=== PATIENT | female | born 1990 | race Caucasian/White ===

== ENCOUNTER 2023-04-05 09:46 | Outpatient (CLI) | payer OTHER ==
[2023-04-05 20:22] LABS: BASOPHILS # (AUTO) 0.1 10^3/uL (0.0-0.1); EOSINOPHILS # (AUTO) 0.1 10^3/uL (0.0-0.7); EOSINOPHILS % (AUTO) 1.4 %; HCT - HEMATOCRIT 44.6 % (37.0-47.0); LYMPHOCYTES # (AUTO) 3.2 10^3/uL (1.5-3.5); LYMPHOCYTES % (AUTO) 36.4 %; MEAN CORPUSCULAR HEMOGLOBIN 27.5 pg (27.0-31.0); MEAN CORPUSCULAR HGB CONC 31.4 g/dL (32.0-36.0); MEAN CORPUSCULAR VOLUME 87.5 fL (81.0-99.0); MEAN PLATELET VOLUME 11.3 fL (7.9-10.8); MONOCYTES # (AUTO) 0.6 10^3/uL (0.0-1.0); MONOCYTES % (AUTO) 7.2 %; NEUTROPHILS # (AUTO) 4.7 10^3/uL (1.5-6.6); NEUTROPHILS % (AUTO) 53.7 %; PLT - PLATELET COUNT 263 10^3/uL (130-450); RED CELL DISTRIBUTION WIDTH 13.7 % (12.0-15.0); WHITE BLOOD COUNT 8.8 x10^3/uL (4.8-10.8)
[2023-04-05 20:57] LABS: % IRON SATURATION 25 % (20-50); ALBUMIN 4.7 g/dL (3.2-5.5); ALBUMIN/GLOBULIN RATIO 1.5 (1.0-2.2); ALKALINE PHOSPHATASE 93 IU/L (42-121); ALT ALANINE AMINOTRANSFERASE 48 IU/L (10-60); AST ASPARTATE AMINOTRANSFERASE 27 IU/L (10-42); BILIRUBIN,TOTAL 0.8 mg/dL (0.2-1.0); BUN - BLOOD UREA NITROGEN 13 mg/dL (6-20); CALCIUM 9.5 mg/dL (8.5-10.3); CARBON DIOXIDE - CO2 24 mmol/L (21-32); CHLORIDE 107 mmol/L (101-111); CHOL/HDL RATIO 6.5 (<4.4); CHOLESTEROL 226 mg/dL; CREATININE 0.6 mg/dL (0.4-1.0); ESTIMATED AVERAGE GLUCOSE 108 mg/dL (70-100); GFR - MDRD 117 (>89); GLUCOSE 98 mg/dL (70-100); HDL CHOLESTEROL 35 mg/dL; HEMOGLOBIN A1c% 5.4 % (4.27-6.07); IRON 87 ug/dL (28-170); LDL CHOLESTEROL,CALCULATED 139 mg/dL; SODIUM 138 mmol/L (135-145); TOTAL IRON BINDING CAPACITY 350 ug/dL (250-450); TOTAL PROTEIN 7.9 g/dL (6.7-8.2); TRANSFERRIN 250 mg/dL (192-382); TRIGLYCERIDES 259 mg/dL; VLDL CHOLESTEROL 52 mg/dL
[2023-04-05 21:05] LABS: THYROID STIMULATING HORMONE 1.92 uIU/mL (0.34-5.60)
[2023-04-05 21:06] LABS: FREE T3 3.81 pg/mL (2.5-3.9); FREE T4 (FREE THYROXINE) 0.81 ng/dL (0.58-1.64)
== END 2023-04-05 09:47 | disposition home or self-care (01) ==
LOC: LAB.N 09:46
PROVIDERS: ATTEND Physician Assistant
DX: E78.5 Hyperlipidemia, unspecified (principal); R25.1 Tremor, unspecified; R73.01 Impaired fasting glucose; E04.9 Nontoxic goiter, unspecified
CPT/HCPCS: 36415; 80053; 80061; 82390; 83036; 83540; 83721; 84439; 84443; 84466; 84481; 85025

== ENCOUNTER 2023-04-30 07:38 | Outpatient (CLI) | payer OTHER ==
--- NOTE | 2023-05-01 13:00 | Ultrasound Report ---
PROCEDURE: Head or Neck Soft Tissue INDICATIONS: GOITER TECHNIQUE: Real-time scanning was performed of the thyroid gland, with image documentation. COMPARISON: None FINDINGS: Right: Thyroid lobe measures 4.8 x 1.3 x 1.4 cm, and is homogeneous in echotexture. Left: Thyroid lobe measures 4.6 x 1.3 x 1.9 cm, and is homogenous in echotexture. Isthmus: 0.3 mm thick. Nodule number: 1 Location: Right superior Size: 0.6 x 0.2 x 0.6 cm. Composition: Cystic. Echogenicity: Anechoic. Shape: wider than tall. Margins: Smooth (0 points). Echogenic foci: None (0 points). Total points: 0 ACR TI-RADS category: 1. Nodule number: 2 Location: Location Size: 0.8 x 0.7 x 0.8 cm. Composition: Solid. Echogenicity: Hyperechoic. Shape: wider than tall. Margins: Smooth (0 points). Echogenic foci: None (0 points). Total points: 3 ACR TI-RADS category: 3. IMPRESSION: 1. Small thyroid nodules bilaterally. Thyroid nodule 2 is mildly suspicious. Please see enclosed foll ow-up recommendation. ACR TI-RADS definitions and recommendations: TI-RADS 1 (benign): 0 points. FNA not needed. TI-RADS 2 (not suspicious): 2 points. FNA not needed. TI-RADS 3 (mildly suspicious): 3 points. "FNA if 2.5 cm or larger, follow up if 1.5 cm or larger (at 1, 3, and 5 years). TI-RADS 4 (moderately suspicious): 4-6 points. "FNA if 1.5 cm or larger, follow up if 1 cm or larger (at 1, 2, 3, and 5 years). TI-RADS 5 (highly suspicious): 7 points or more. "FNA if 1 cm or larger, follow up if 0.5 cm or larger (every year for 5 years). Reviewed by: Blake Storm MD on 05/01/2023 12:58 PM PDT Approved by: Blake Storm MD on 05/01/2023 12:58 PM PDT Station ID: [id number]
== END 2023-04-30 07:39 | disposition home or self-care (01) ==
LOC: DI 07:38
PROVIDERS: ATTEND Physician Assistant
DX: E04.2 Nontoxic multinodular goiter (principal)

== ENCOUNTER 2023-09-23 08:10 | Outpatient (CLI) | payer OTHER ==
[2023-09-23 12:28] LABS: BASOPHILS # (AUTO) 0.1 10^3/uL (0.0-0.1); BASOPHILS % (AUTO) 0.6 %; EOSINOPHILS # (AUTO) 0.1 10^3/uL (0.0-0.7); HCT - HEMATOCRIT 42.1 % (37.0-47.0); HGB - HEMOGLOBIN 13.1 g/dL (12.0-16.0); LYMPHOCYTES # (AUTO) 2.8 10^3/uL (1.5-3.5); LYMPHOCYTES % (AUTO) 36.1 %; MEAN CORPUSCULAR HEMOGLOBIN 27.7 pg (27.0-31.0); MEAN CORPUSCULAR HGB CONC 31.1 g/dL (32.0-36.0); MEAN PLATELET VOLUME 10.8 fL (7.9-10.8); MONOCYTES # (AUTO) 0.6 10^3/uL (0.0-1.0); NEUTROPHILS # (AUTO) 4.2 10^3/uL (1.5-6.6); PLT - PLATELET COUNT 259 10^3/uL (130-450); RED BLOOD COUNT 4.73 10^6/uL (4.20-5.40); RED CELL DISTRIBUTION WIDTH 13.3 % (12.0-15.0); WHITE BLOOD COUNT 7.8 x10^3/uL (4.8-10.8)
[2023-09-23 12:54] LABS: THYROID STIMULATING HORMONE 1.74 uIU/mL (0.34-5.60)
[2023-09-23 13:01] LABS: ALBUMIN 4.7 g/dL (3.2-5.5); ALBUMIN/GLOBULIN RATIO 1.7 (1.0-2.2); BILIRUBIN,TOTAL 0.5 mg/dL (0.2-1.0); CALCIUM 9.5 mg/dL (8.5-10.3); CREATININE 0.7 mg/dL (0.6-1.3); POTASSIUM 4.6 mmol/L (3.5-4.5); TOTAL PROTEIN 7.5 g/dL (6.4-8.9)
[2023-09-24 10:46] LABS: ESTIMATED AVERAGE GLUCOSE 105 mg/dL (70-100); HEMOGLOBIN A1c% 5.3 % (4.27-6.07)
== END 2023-09-23 08:11 | disposition home or self-care (01) ==
LOC: LAB.N 08:10
PROVIDERS: ATTEND Internal Medicine
DX: R03.0 Elevated blood-pressure reading, without diagnosis of hypertension (principal); R73.01 Impaired fasting glucose; E04.1 Nontoxic single thyroid nodule
CPT/HCPCS: 36415; 80053; 83036; 84436; 84443; 84480; 85025

== ENCOUNTER 2023-11-05 09:15 | Outpatient (CLI) | payer OTHER ==
[2023-11-05 18:40] LABS: BILIRUBIN,URINE NEGATIVE (NEGATIVE); GLUCOSE, URINE (UA) NEGATIVE (NEGATIVE); KETONES,URINE (UA) NEGATIVE (NEGATIVE); LEUKOCYTE ESTERASE, URINE NEGATIVE (NEGATIVE); NITRITE,URINE NEGATIVE (NEGATIVE); OCCULT BLOOD,URINE NEGATIVE (NEGATIVE); PROTEIN,URINE NEGATIVE (NEGATIVE); UROBILINOGEN,URINE 0.2 (NORMAL) E.U./dL (NORMAL)
[2023-11-05 18:43] LABS: CLARITY,URINE HAZY (CLEAR); HCG UR QUAL NEGATIVE
[2023-11-05 19:14] LABS: BACTERIA,URINE Rare /HPF (None Seen); RBC,URINE None Seen /HPF (0-5); SQUAMOUS EPITHELIAL CELL,UR MOD Squamous (<= Few); WBC,URINE 0-3 /HPF (0-5)
[2023-11-05 19:15] LABS: AMORPHOUS SEDIMENT,UR Few /LPF; MUCUS,URINE Few Strands
== END 2023-11-05 09:30 | disposition home or self-care (01) ==
LOC: LAB.N 09:15
PROVIDERS: ATTEND Nurse Practitioner
DX: R30.0 Dysuria (principal)
CPT/HCPCS: 81001; 81025; 87086

== ENCOUNTER 2023-11-18 07:40 | Outpatient (CLI) | payer OTHER ==
--- NOTE | 2023-11-18 17:12 | MRI Report ---
PROCEDURE: BRAIN WO INDICATIONS: HEADACHE TECHNIQUE: Noncontrast axial T1 spin echo, axial T2 fast spin echo, sagittal and axial FLAIR, coronal T2 fast sp in echo, axial gradient echo, axial diffusion and ADC through the brain. COMPARISON: None. FINDINGS: Image quality: Motion artifact is noted. Images were repeated, with some improvement. CSF Spaces: Basal cisterns are patent. No extra-axial fluid collections. Ventricles are normal in size and shape. Brain: No intracranial masses or hemorrhage. [place]/white matter interface is normal. Brainstem appe ars normal. Diffusion-weighted images demonstrate no acute ischemic insult. No chronic ischemic ins ults. Normal intravascular flow voids are present. Skull and face: Calvarium has normal marrow signal. Orbits appear normal. There is a skin lesion s een superiorly, to the left of midline, as on series 11 image 17 and on series 23 image 23, measuring 1 cm. Sinuses: Sinuses and mastoids are clear. IMPRESSION: Unremarkable brain MRI, without a cause of headache identified. To the limits of this noncontrast study, no findings of masses or mass effect can be seen. No brain edema or hydrocephalus can be seen. Reviewed by: Derrick Orozco MD on 11/18/2023 4:11 PM [facility] Approved by: Derrick Orozco MD on 11/18/2023 4:11 PM [facility] Station ID: [id number]
== END 2023-11-18 07:41 | disposition home or self-care (01) ==
LOC: DI 07:40
PROVIDERS: ATTEND Nurse Practitioner Family
DX: R51.9 Headache, unspecified (principal)

== ENCOUNTER 2023-12-25 08:30 | Outpatient (CLI) | payer BC, OTHER ==
[2023-12-25 13:04] LABS: THYROID STIMULATING HORMONE 1.42 uIU/mL (0.34-5.60)
[2023-12-27 18:07] LABS: THYROGLOBULIN ANTIBODY <1.0 IU/mL (0.0-0.9); THYROID PEROXIDASE (TPO) AB 12 IU/mL (0-34)
== END 2023-12-25 08:31 | disposition home or self-care (01) ==
LOC: LAB.N 08:30
PROVIDERS: ATTEND Physician Assistant
DX: E04.1 Nontoxic single thyroid nodule (principal); R00.2 Palpitations; F41.8 Other specified anxiety disorders
CPT/HCPCS: 36415; 84439; 84443; 84481; 86376; 86800

== ENCOUNTER 2024-02-27 06:57 | Outpatient (CLI) | payer BC, OTHER ==
--- NOTE | 2024-02-27 15:35 | Ultrasound Report ---
PROCEDURE: Soft Tissue Head or Neck INDICATIONS: THYROID NODULE TECHNIQUE: Real-time scanning was performed of the thyroid gland, with image documentation. COMPARISON: Thyroid ultrasound on May 01, 2023 FINDINGS: Right: Thyroid lobe measures 4.3 x 1.7 x 1.5 cm, and is homogeneous in echotexture. Left: Thyroid lobe measures 4.2 x 1.8 x 1.6 cm, and is homogenous in echotexture. Isthmus: 0.3 cm thick. Nodule number: One Location: Right superior Size: 0.3 x 0.4 x 0.2 cm, previously 0.6 x 0.6 x 0.2 cm. Composition: Cystic / almost completely cystic (0 points). Echogenicity: Anechoic (0 points). Shape: wider than tall (0 points). Margins: Smooth (0 points). Echogenic foci: None (0 points). Total points: 0 ACR TI-RADS category: TI-RADS 1: Benign. Nodule number: 2 Location: Left inferior Size: 0.8 x 0.8 x 0.5 cm, previously 0.8 x 0.8 x 0.7 cm. Composition: Solid (2 points). Echogenicity: Hyperechoic (1 point). Shape: wider than tall (0 points). Margins: Smooth (0 points). Echogenic foci: None (0 points). Total points: 3 ACR TI-RADS category: TI-RADS 3: Mildly suspicious. IMPRESSION: Compared to ultrasound dated April 30, 2023, thyroid nodules have slightly decreased in size. Based on size and appearance, no dedicated follow-up needed. ACR TI-RADS definitions and recommendations: TI-RADS 1 (benign): 0 points. FNA not needed. TI-RADS 2 (not suspicious): 2 points. FNA not needed. TI-RADS 3 (mildly suspicious): 3 points. "FNA if 2.5 cm or larger, follow up if 1.5 cm or larger (at 1, 3, and 5 years). TI-RADS 4 (moderately suspicious): 4-6 points. "FNA if 1.5 cm or larger, follow up if 1 cm or larger (at 1, 2, 3, and 5 years). TI-RADS 5 (highly suspicious): 7 points or more. "FNA if 1 cm or larger, follow up if 0.5 cm or larger (every year for 5 years). Reviewed by: Juwan Hurd MD on 02/27/2024 3:34 PM PDT Approved by: Juwan Hurd MD on 02/27/2024 3:34 PM PDT Station ID: [id number]
[2024-03-02 07:10] LABS: METANEPHRINE URINE 63 ug/L (Undefined); METANEPHRINE URINE 24HR 47 ug/24 hr (36-209); NORMETANEPHRINE URINE 315 ug/L (Undefined); NORMETANEPHRINE URINE 24HR 236 ug/24 hr (131-612)
== END 2024-02-27 06:58 | disposition home or self-care (01) ==
LOC: DI 06:57
PROVIDERS: ATTEND Physician Assistant
DX: E04.2 Nontoxic multinodular goiter (principal); R00.2 Palpitations; F41.8 Other specified anxiety disorders; R03.0 Elevated blood-pressure reading, without diagnosis of hypertension; H53.8 Other visual disturbances
CPT/HCPCS: 83835

== ENCOUNTER 2024-03-17 07:42 | Outpatient (CLI) | payer BC, OTHER | END 2024-03-17 07:43 | disposition home or self-care (01) | LOC: DI 07:42 | PROVIDERS: ATTEND Physician Assistant | DX: R00.2 Palpitations (principal) | CPT/HCPCS: 93307 ==

== ENCOUNTER 2024-03-31 07:41 | Outpatient (CLI) | payer BC, OTHER ==
[2024-03-31 12:29] LABS: BASOPHILS # (AUTO) 0.1 10^3/uL (0.0-0.1); EOSINOPHILS # (AUTO) 0.1 10^3/uL (0.0-0.7); HCT - HEMATOCRIT 41.4 % (37.0-47.0); HGB - HEMOGLOBIN 12.8 g/dL (12.0-16.0); LYMPHOCYTES # (AUTO) 3.2 10^3/uL (1.5-3.5); MEAN CORPUSCULAR HEMOGLOBIN 27.2 pg (27.0-31.0); MEAN CORPUSCULAR HGB CONC 30.9 g/dL (32.0-36.0); MEAN CORPUSCULAR VOLUME 87.9 fL (81.0-99.0); MEAN PLATELET VOLUME 10.9 fL (7.9-10.8); MONOCYTES # (AUTO) 0.6 10^3/uL (0.0-1.0); NEUTROPHILS % (AUTO) 43.7 %; PLT - PLATELET COUNT 268 10^3/uL (130-450); RED BLOOD COUNT 4.71 10^6/uL (4.20-5.40); RED CELL DISTRIBUTION WIDTH 13.4 % (12.0-15.0); WHITE BLOOD COUNT 6.9 x10^3/uL (4.8-10.8)
[2024-03-31 12:54] LABS: ALBUMIN 4.7 g/dL (3.2-5.5); ALBUMIN/GLOBULIN RATIO 1.7 (1.0-2.2); ALKALINE PHOSPHATASE 84 IU/L (42-121); ALT ALANINE AMINOTRANSFERASE 65 IU/L (10-60); AST ASPARTATE AMINOTRANSFERASE 33 IU/L (10-42); BILIRUBIN,TOTAL 0.7 mg/dL (0.2-1.0); BUN - BLOOD UREA NITROGEN 14 mg/dL (6-20); CALCIUM 9.9 mg/dL (8.5-10.3); CARBON DIOXIDE - CO2 26 mmol/L (21-32); CHLORIDE 104 mmol/L (101-111); CHOLESTEROL 223 mg/dL; CREATININE 0.8 mg/dL (0.6-1.3); GFR - MDRD 83 (>89); GLUCOSE 113 mg/dL (74-104); HDL CHOLESTEROL 37 mg/dL; LDL CHOLESTEROL,CALCULATED 147 mg/dL; POTASSIUM 3.9 mmol/L (3.5-4.5); SODIUM 136 mmol/L (135-145); TOTAL PROTEIN 7.5 g/dL (6.4-8.9); TRIGLYCERIDES 193 mg/dL (48-352); VLDL CHOLESTEROL 39 mg/dL
[2024-03-31 12:55] LABS: THYROID STIMULATING HORMONE 2.46 uIU/mL (0.34-5.60)
== END 2024-03-31 07:42 | disposition home or self-care (01) ==
LOC: LAB.N 07:41
PROVIDERS: ATTEND Physician Assistant
DX: E78.5 Hyperlipidemia, unspecified (principal); R00.2 Palpitations
CPT/HCPCS: 36415; 80053; 80061; 83721; 84443; 85025